=== PATIENT | female | born 1950 | race African-American/Black ===

== ENCOUNTER 2019-04-02 19:31 | Emergency (ER) | payer BC, MEDICAID ==
[~2019-04-02] VITALS: Ht 170.2 cm; Wt 78.0 kg
[~2019-04-02 19:31] MED LIST: AMLO2.5T2; GEMF600T5; LOSA25TA3
[2019-04-03] MEDS: ACETAMINOPHEN 500MG TABLET PO ONE (00:58)
[2019-04-03] MEDS: GABAPENTIN 300MG CAPSULE PO ONE (00:58)
[2019-04-03] MEDS: HYDRALAZINE HCL 10MG TABLET PO ONE (02:02)
[2019-04-03 02:49] VITALS: BP 161/87
== END 2019-04-03 02:52 | disposition home or self-care (01) ==
LOC: ER 19:31
DX: S80.01XA Contusion of right knee, initial encounter (principal); E11.9 Type 2 diabetes mellitus without complications; I10 Essential (primary) hypertension; F17.200 Nicotine dependence, unspecified, uncomplicated; Z79.899 Other long term (current) drug therapy; V49.9XXA Car occupant (driver) (passenger) injured in unspecified traffic accident, initial encounter; Y93.89 Activity, other specified; Y92.89 Other specified places as the place of occurrence of the external cause; Y99.8 Other external cause status
CPT/HCPCS: 73560; 99284

== ENCOUNTER 2019-05-14 13:32 | Emergency (ER) | payer BC ==
[~2019-05-14] VITALS: Ht 170.2 cm; Wt 80.0 kg
[2019-05-14] MEDS ORDERED: IBUPROFEN 600MG TABLET PO ONE (16:45)
[2019-05-14] MEDS ORDERED: ACETAMINOPHEN 500MG TABLET PO ONE (16:45)
[2019-05-14 16:59] VITALS: BP 160/87
== END 2019-05-14 17:09 | disposition home or self-care (01) ==
LOC: ER 13:32
DX: S64.91XA Injury of unspecified nerve at wrist and hand level of right arm, initial encounter (principal); M79.644 Pain in right finger(s); M25.531 Pain in right wrist; M25.551 Pain in right hip; E11.9 Type 2 diabetes mellitus without complications; I10 Essential (primary) hypertension; V89.2XXA Person injured in unspecified motor-vehicle accident, traffic, initial encounter; Y93.89 Activity, other specified; Y92.89 Other specified places as the place of occurrence of the external cause; Y99.8 Other external cause status
CPT/HCPCS: 29125; 99283

== ENCOUNTER 2019-10-12 10:21 | Emergency (ER) | payer BC, MEDICARE ==
[~2019-10-12] VITALS: Ht 170.2 cm; Wt 82.5 kg
[2019-10-12] MEDS ORDERED: albuterol (10:33)
[2019-10-12] MEDS ORDERED: METF-416 PO (10:33)
[2019-10-12] MEDS ORDERED: OMEP20TA2 PO (10:33)
[2019-10-12] MEDS ORDERED: GABA800T97 PO (10:33)
[2019-10-12] MEDS ORDERED: ACETAMINOPHEN WITH CODEINE 300/30MG TABLET PO STA (11:07)
[2019-10-12] MEDS ORDERED: AMLODIPINE 2.5MG TABLET PO ONE (11:15)
[2019-10-12 11:49] LABS: BASOPHILS % 0.8 % (0.0-2.0); EOSINOPHILS % 1.5 % (0.0-5.0); HEMATOCRIT. 42.7 % (36.0-48.0); HEMOGLOBIN. 14.7 g/dL (12.0-16.0); LYMPHOCYTES % 23.2 % (20.0-50.0); MEAN CORPUSCULAR HEMOGLOBIN 30.5 pg (28.0-32.0); MEAN CORPUSCULAR VOLUME 88.5 fL (81.0-99.0); MEAN PLATELET VOLUME 8.6 fl (7.4-10.4); MONOCYTES % 5.9 % (2.0-8.0); NEUTROPHILS % 68.6 % (40.0-76.0); PLATELET 212 x1000/uL (130-400); RED BLOOD CELL COUNT 4.83 mill/uL (4.2-5.4); RED CELL DISTRIBUTION WIDTH 13.6 % (11.6-14.6)
[2019-10-12 11:54] LABS: CHLORIDE 103 mEq/L (98-107)
[2019-10-12] MEDS ORDERED: HYDRALAZINE 20MG/ML VIAL IV ONE ×2 (12:30→14:00)
[2019-10-12] MEDS ORDERED: SODIUM CHLORIDE 0.9% 1,000 ML IV ONE (12:30)
[2019-10-12 14:43] LABS: CLARITY URINE CLEAR (CLEAR); COLOR URINE YELLOW (YELLOW); KETONES URINE NEGATIVE (NEGATIVE); LEUKOCYTE ESTERASE URINE NEGATIVE (NEGATIVE); NITRITE URINE NEGATIVE (NEGATIVE); OCCULT BLOOD URINE NEGATIVE (NEGATIVE); PROTEIN URINE 3+ (NEGATIVE); SPECIFIC GRAVITY URINE 1.016 (1.005-1.030); UROBILINOGEN URINE 0.2 E.U./dL (0.2-1.0)
[2019-10-12] MEDS ORDERED: ONDANSETRON HCL 4MG/2ML INJ IV ONE (17:00)
[2019-10-12 18:20] VITALS: BP 168/78
== END 2019-10-12 18:20 | disposition left against medical advice (07) ==
LOC: ER 10:21 → EDBEDREQ 14:07 → CANBEDREQ 18:02 → ER 18:20
DX: I67.4 Hypertensive encephalopathy (principal); E11.9 Type 2 diabetes mellitus without complications; E78.00 Pure hypercholesterolemia, unspecified; Z98.890 Other specified postprocedural states; Z79.899 Other long term (current) drug therapy
CPT/HCPCS: 36415; 70450; 71045; 80053; 81003; 84484; 85025; 93005; 96361; 96374; 96375; 96376; 99285; J0360; J2405; J7030

== ENCOUNTER 2020-01-09 13:34 | Emergency (ER) | payer MEDICARE ==
[~2020-01-09] VITALS: Ht 167.6 cm; Wt 81.0 kg
[~2020-01-09 13:34] MED LIST changes: +GABA800T97 PO; +METF-416 PO; +OMEP20TA2 PO; +albuterol
[2020-01-09] MEDS ORDERED: HYDROCODONE/ACETAMINOPHEN 5/325MG TABLET PO STA (16:00)
[2020-01-09] MEDS ORDERED: PREDNISONE 20MG TABLET PO ONE (16:00)
[2020-01-09] MEDS ORDERED: VALACYCLOVIR HCL 500MG TABLET PO SCH (16:00)
[2020-01-09 16:32] LABS: BASOPHILS % 0.9 % (0.0-2.0); EOSINOPHILS % 1.8 % (0.0-5.0); HEMATOCRIT. 41.6 % (36.0-48.0); HEMOGLOBIN. 14.6 g/dL (12.0-16.0); LYMPHOCYTES % 25.8 % (20.0-50.0); MEAN CORPUSCULAR HEMOGLOBIN 31.7 pg (28.0-32.0); MEAN CORPUSCULAR VOLUME 89.9 fL (81.0-99.0); MEAN PLATELET VOLUME 8.5 fl (7.4-10.4); MONOCYTES % 7.2 % (2.0-8.0); NEUTROPHILS % 64.3 % (40.0-76.0); PLATELET 227 x1000/uL (130-400); RED BLOOD CELL COUNT 4.62 mill/uL (4.2-5.4); RED CELL DISTRIBUTION WIDTH 14.2 % (11.6-14.6)
[2020-01-09 16:39] LABS: CHLORIDE 103 mEq/L (98-107)
[2020-01-09] MEDS ORDERED: KETOROLAC 60MG/2ML VIAL IM ONE (17:45)
[2020-01-09 18:12] LABS: CLARITY URINE CLEAR (CLEAR); COLOR URINE YELLOW (YELLOW); KETONES URINE TRACE (NEGATIVE); LEUKOCYTE ESTERASE URINE NEGATIVE (NEGATIVE); NITRITE URINE NEGATIVE (NEGATIVE); OCCULT BLOOD URINE NEGATIVE (NEGATIVE); PH URINE 5.5 (4.5-8.0); PROTEIN URINE 4+ (NEGATIVE); SPECIFIC GRAVITY URINE 1.025 (1.005-1.030)
[2020-01-09 18:51] VITALS: BP 189/97
== END 2020-01-09 18:54 | disposition home or self-care (01) ==
LOC: ER 13:34
DX: B02.9 Zoster without complications (principal); R10.31 Right lower quadrant pain; E11.9 Type 2 diabetes mellitus without complications; I10 Essential (primary) hypertension; E78.00 Pure hypercholesterolemia, unspecified; F17.210 Nicotine dependence, cigarettes, uncomplicated; Z79.84 Long term (current) use of oral hypoglycemic drugs
CPT/HCPCS: 36415; 74176; 80053; 81003; 83690; 85025; 96372; 99284; J1885; J7512

== ENCOUNTER 2021-05-23 10:34 | Emergency (ER) | payer MEDICARE ==
[~2021-05-23] VITALS: Ht 170.2 cm; Wt 91.0 kg
[~2021-05-23 10:34] MED LIST changes: -GEMF600T5; +GEMF600T90
[2021-05-23 13:30] VITALS: BP 235/122
[2021-05-23 14:21] LABS: CLARITY URINE CLEAR (CLEAR); COLOR URINE YELLOW (YELLOW); KETONES URINE NEGATIVE (NEGATIVE); LEUKOCYTE ESTERASE URINE NEGATIVE (NEGATIVE); NITRITE URINE NEGATIVE (NEGATIVE); OCCULT BLOOD URINE 1+ (NEGATIVE); PH URINE 6.5 (4.5-8.0); PROTEIN URINE 4+ (NEGATIVE); SPECIFIC GRAVITY URINE 1.015 (1.005-1.030)
[2021-05-23 14:45] LABS: BG BASE EXCESS 0.8 mmol/L (-2.0-2.0); BG CARBOXYHEMOGLOBIN 5.5 % (0.5-1.5); BG DEOXYHEMOGLOBIN 4.9 % (0.0-5.0); BG FRACTION INSPIRED OXYGEN 21; BG HCO3 ACT 24.4 mmol/L (22.0-26.0); BG OXYGEN SATURATION 94.8 % (92.0-98.5); BG OXYHEMOGLOBIN 89.6 % (94.0-97.0); BG PCO2 35.6 mmHg (35.0-45.0); BG PH 7.454 (7.350-7.450); BG PO2 70.5 mmHg (75.0-100.0); BG SAMPLE SITE RIGHT BRACHIAL; BG TOTAL HEMOGLOBIN 12.2 g/dL (12.0-18.0); BG VENT MODE ROOM AIR
[2021-05-23 15:12] LABS: BASOPHILS % 0.9 % (0.0-2.0); EOSINOPHILS % 1.6 % (0.0-5.0); HEMATOCRIT. 35.5 % (36.0-48.0); HEMOGLOBIN. 11.9 g/dL (12.0-16.0); LYMPHOCYTES % 16.2 % (20.0-50.0); MEAN CORPUSCULAR HEMOGLOBIN 29.6 pg (28.0-32.0); MEAN CORPUSCULAR VOLUME 88.6 fL (81.0-99.0); MEAN PLATELET VOLUME 8.2 fl (7.4-10.4); NEUTROPHILS % 74.3 % (40.0-76.0); PLATELET 276 x1000/uL (130-400); RED BLOOD CELL COUNT 4.01 mill/uL (4.2-5.4); RED CELL DISTRIBUTION WIDTH 14.1 % (11.6-14.6)
[2021-05-23 15:18] LABS: CHLORIDE 111 mEq/L (98-107)
[2021-05-23] MEDS ORDERED: KCL 10MEQ/50ML PREMIX 50 ML IV ONE (18:00)
[2021-05-23] MEDS ORDERED: POTASSIUM CHLORIDE 20MEQ TABLET SR PO ONE ×2 (18:00→19:30)
[2021-05-23] MEDS ORDERED: FUROSEMIDE 20MG/2ML VIAL IVP ONE (19:30)
[2021-05-23] MEDS ORDERED: FUROSEMIDE 20MG TABLET PO ONE (19:30)
[2021-05-23] MEDS ORDERED: POTA-9 MT (19:40)
[2021-05-23] MEDS ORDERED: FURO-152 MT (19:40)
[2021-05-23] MEDS ORDERED: POTASSIUM CHLORIDE 20MEQ TABLET SR PO NR (20:00)
[2021-05-23] MEDS ORDERED: FUROSEMIDE 20MG TABLET PO NR (20:00)
== END 2021-05-23 20:00 | disposition home or self-care (01) ==
LOC: ER 11:03
DX: R60.1 Generalized edema (principal); R06.02 Shortness of breath; J44.9 Chronic obstructive pulmonary disease, unspecified; I10 Essential (primary) hypertension; E11.9 Type 2 diabetes mellitus without complications; Z98.890 Other specified postprocedural states
CPT/HCPCS: 36415; 36600; 71045; 80053; 81003; 82375; 82805; 83605; 83880; 84484; 85025; 93005; 99285; J3480

== ENCOUNTER 2021-07-20 19:44 | Inpatient (IN) | payer MEDICARE ==
[~2021-07-20] VITALS: Ht 170.2 cm; Wt 95.7 kg
[~2021-07-20 19:44] MED LIST changes: +FURO-152 MT; +POTA-9 MT
[2021-07-20] MEDS ORDERED: ACETAMINOPHEN 325MG TABLET PO ONE (20:45)
[2021-07-20 22:26] LABS: BASOPHILS % 0.8 % (0.0-2.0); HEMATOCRIT. 36.2 % (36.0-48.0); LYMPHOCYTES % 13.2 % (20.0-50.0); MEAN CORPUSCULAR HEMOGLOBIN 29.2 pg (28.0-32.0); MEAN CORPUSCULAR VOLUME 88.1 fL (81.0-99.0); MEAN PLATELET VOLUME 8.4 fl (7.4-10.4); MONOCYTES % 7.6 % (2.0-8.0); NEUTROPHILS % 76.4 % (40.0-76.0); PLATELET 270 x1000/uL (130-400); RED BLOOD CELL COUNT 4.11 mill/uL (4.2-5.4); RED CELL DISTRIBUTION WIDTH 14.9 % (11.6-14.6)
[2021-07-20 22:27] LABS: CHLORIDE 111 mEq/L (98-107)
[2021-07-21] MEDS ORDERED: ASPIRIN 325MG TABLET PO ONE (03:30)
[2021-07-21] MEDS ORDERED: ENOXAPARIN 80MG/0.8ML SYR SUBCUT ONE (03:30)
[2021-07-21] MEDS ORDERED: FUROSEMIDE 40MG/4ML VIAL IVP ONE (03:30)
[2021-07-21] MEDS ORDERED: CARV6.2548 MT (05:14)
[2021-07-21] MEDS ORDERED: ATOR20TA65 MT (05:15)
[2021-07-21] MEDS ORDERED: NPH,100I SQ (05:19)
[2021-07-21] MEDS ORDERED: HYDR-4134 MT (05:19)
[2021-07-21] MEDS ORDERED: LISI40TA13 MT (05:20)
[2021-07-21] MEDS ORDERED: ALBU90AE INH (05:22)
[2021-07-21] MEDS ORDERED: ACETAMINOPHEN 325MG TABLET PO PRN (10:30)
[2021-07-21] MEDS ORDERED: DOCUSATE SODIUM 100MG CAPSULE PO PRN (10:30)
[2021-07-21] MEDS ORDERED: FUROSEMIDE 40MG/4ML VIAL IV SCH (10:30)
[2021-07-21] MEDS ORDERED: MAGNESIUM/ALUMINUM HYDROXIDE/SIMETHICONE 30ML UDC PO PRN (10:30)
[2021-07-21] MEDS ORDERED: HYDROCODONE/ACETAMINOPHEN 5/325MG TABLET PO PRN (10:30)
[2021-07-21] MEDS ORDERED: DEXTROSE 50% WATER 50ML SYRINGE IV PRN ×2 (10:30)
[2021-07-21] MEDS ORDERED: ATORVASTATIN CALCIUM 20MG TABLET PO SCH (10:30)
[2021-07-21] MEDS ORDERED: HYDRALAZINE HCL 25MG TABLET PO SCH (10:30)
[2021-07-21] MEDS: BLOOD SUGAR DIAGNOSTIC STRIP TEST SCH ×3 (11:30→20:52)
[2021-07-21] MEDS: AMLODIPINE 5MG TABLET PO SCH (11:43)
[2021-07-21] MEDS: SPIRONOLACTONE 25MG TABLET PO SCH (11:43)
[2021-07-21] MEDS: INSULIN LISPRO 100 UNITS/ML SUBCUT SCH ×3 (12:00→21:13)
[2021-07-21] MEDS: POTASSIUM CHLORIDE 10MEQ TABLET SR PO SCH (12:00)
[2021-07-21] MEDS: HYDRALAZINE 20MG/ML VIAL IV PRN (12:33)
[2021-07-21] MEDS: HYDRALAZINE HCL 25MG TABLET PO SCH ×2 (13:00→18:53)
[2021-07-21] MEDS: GABAPENTIN 400MG CAPSULE PO SCH ×2 (13:14→22:32)
[2021-07-21] MEDS: CARVEDILOL 6.25 MG TABLET PO SCH ×2 (13:15→21:26)
[2021-07-21] MEDS: LISINOPRIL 40MG TABLET PO SCH (13:15)
[2021-07-21] MEDS ORDERED: LABETALOL 5MG/ML SYR 20 MG/4 ML SYRINGE IV PRN (13:30)
[2021-07-21] MEDS ORDERED: NITROGLYCERIN 50MG PREMIX 250 ML IV PRN (13:45)
[2021-07-21] MEDS: FUROSEMIDE 40MG/4ML VIAL IV SCH (18:00)
[2021-07-21] MEDS: ENOXAPARIN 30MG/0.3ML SYR SUBCUT SCH (19:17)
[2021-07-21] MEDS ORDERED: NALOXONE HCL 0.4MG/ML VIAL IV PRN (21:45)
[2021-07-21 23:43] VITALS: BP 149/86
[2021-07-22] VITALS: BP 163/78
[2021-07-22] MEDS: IPRATROPIUM/ALBUTEROL 0.5-3(2.5)MG/3ML NEB HHN PRN (00:36)
[2021-07-22 04:00] VITALS: BP 173/82
[2021-07-22] MEDS: ENOXAPARIN 30MG/0.3ML SYR SUBCUT SCH ×2 (05:53→17:31)
[2021-07-22] MEDS: GABAPENTIN 400MG CAPSULE PO SCH ×3 (05:53→21:24)
[2021-07-22] MEDS: FUROSEMIDE 40MG/4ML VIAL IV SCH ×2 (05:54→17:27)
[2021-07-22] MEDS: BLOOD SUGAR DIAGNOSTIC STRIP TEST SCH ×4 (05:55→20:31)
[2021-07-22] MEDS: CLONIDINE 0.1MG TABLET PO PRN ×2 (05:55→16:07)
[2021-07-22] MEDS: INSULIN LISPRO 100 UNITS/ML SUBCUT SCH ×4 (06:51→21:29)
[2021-07-22 08:00] VITALS: BP 159/80
[2021-07-22] MEDS ORDERED: LISINOPRIL 40MG TABLET PO SCH (09:00)
[2021-07-22] MEDS ORDERED: IOHEXOL-350 100 ML BOTTLE ONE (09:26)
[2021-07-22] MEDS: POTASSIUM CHLORIDE 10MEQ TABLET SR PO SCH (09:40)
[2021-07-22] MEDS: CARVEDILOL 6.25 MG TABLET PO SCH ×2 (09:40→21:24)
[2021-07-22] MEDS: LISINOPRIL 40MG TABLET PO SCH (09:41)
[2021-07-22] MEDS: HYDRALAZINE HCL 25MG TABLET PO SCH ×2 (09:41→16:09)
[2021-07-22] MEDS: SPIRONOLACTONE 25MG TABLET PO SCH (09:41)
[2021-07-22] MEDS: AMLODIPINE 5MG TABLET PO SCH (09:41)
[2021-07-22 10:46] LABS: EOSINOPHILS % 2.2 % (0.0-5.0); HEMATOCRIT. 33.2 % (36.0-48.0); LYMPHOCYTES % 13.8 % (20.0-50.0); MEAN CORPUSCULAR HEMOGLOBIN 29.5 pg (28.0-32.0); MEAN CORPUSCULAR VOLUME 89.2 fL (81.0-99.0); MEAN PLATELET VOLUME 8.4 fl (7.4-10.4); MONOCYTES % 8.2 % (2.0-8.0); NEUTROPHILS % 74.8 % (40.0-76.0); PLATELET 215 x1000/uL (130-400); RED BLOOD CELL COUNT 3.72 mill/uL (4.2-5.4); RED CELL DISTRIBUTION WIDTH 14.6 % (11.6-14.6)
[2021-07-22 10:54] LABS: PHOSPHORUS 4.2 mg/dL (2.5-4.9)
[2021-07-22 10:57] LABS: T4 FREE 1.22 ng/dL (0.76-1.46)
[2021-07-22 12:00] VITALS: BP 158/88
[2021-07-22 15:55] VITALS: BP 164/89
[2021-07-22 19:54] LABS: *AMPHETAMINES SCREEN URINE NEGATIVE (NEGATIVE); *BARBITURATES SCREEN URINE NEGATIVE (NEGATIVE); *BENZODIAZEPINES SCREEN URINE NEGATIVE (NEGATIVE); *COCAINE SCREEN URINE NEGATIVE (NEGATIVE)
[2021-07-22 19:55] LABS: CANNABINOID URINE SCREEN PRESUMTIVE POSITIVE (NEGATIVE); METHADONE URINE SCREEN NEGATIVE (NEGATIVE); OPIATES URINE SCREEN NEGATIVE (NEGATIVE); PHENCYCLIDINE URINE SCREEN NEGATIVE (NEGATIVE)
[2021-07-22 20:00] VITALS: BP 180/83
[2021-07-22] MEDS: ATORVASTATIN CALCIUM 20MG TABLET PO SCH (21:24)
[2021-07-22] MEDS: FLUTICASONE PROPIONATE 50MCG/SPRAY BOTTLE BOTHNSTRLS SCH (21:25)
[2021-07-22] MEDS: HYDRALAZINE 20MG/ML VIAL IV PRN (21:25)
[2021-07-23] VITALS (9 sets, daily range): BP systolic 146–196; BP diastolic 65–98
[2021-07-23] MEDS: GABAPENTIN 400MG CAPSULE PO SCH ×2 (05:01→21:58)
[2021-07-23] MEDS: ENOXAPARIN 30MG/0.3ML SYR SUBCUT SCH ×2 (05:01→18:00)
[2021-07-23] MEDS: BLOOD SUGAR DIAGNOSTIC STRIP TEST SCH ×4 (06:10→20:19)
[2021-07-23] MEDS: HYDRALAZINE 20MG/ML VIAL IV PRN ×2 (06:10→22:07)
[2021-07-23] MEDS: FUROSEMIDE 40MG/4ML VIAL IV SCH (06:10)
[2021-07-23] MEDS: INSULIN LISPRO 100 UNITS/ML SUBCUT SCH ×4 (06:16→20:51)
[2021-07-23] MEDS: HYDRALAZINE HCL 25MG TABLET PO SCH ×3 (10:11→18:26)
[2021-07-23] MEDS: CARVEDILOL 6.25 MG TABLET PO SCH ×2 (10:11→20:43)
[2021-07-23] MEDS: SPIRONOLACTONE 25MG TABLET PO SCH (10:12)
[2021-07-23] MEDS: AMLODIPINE 10MG TABLET PO SCH (10:12)
[2021-07-23] MEDS: POTASSIUM CHLORIDE 10MEQ TABLET SR PO SCH (10:12)
[2021-07-23] MEDS: LISINOPRIL 40MG TABLET PO SCH (10:13)
[2021-07-23] MEDS: FLUTICASONE PROPIONATE 50MCG/SPRAY BOTTLE BOTHNSTRLS SCH ×2 (10:13→20:44)
[2021-07-23 11:24] LABS: EOSINOPHILS % 2.1 % (0.0-5.0); HEMATOCRIT. 34.8 % (36.0-48.0); HEMOGLOBIN. 11.5 g/dL (12.0-16.0); LYMPHOCYTES % 13.1 % (20.0-50.0); MEAN CORPUSCULAR HEMOGLOBIN 29.6 pg (28.0-32.0); MEAN CORPUSCULAR VOLUME 89.2 fL (81.0-99.0); MEAN PLATELET VOLUME 8.9 fl (7.4-10.4); NEUTROPHILS % 75.8 % (40.0-76.0); PLATELET 246 x1000/uL (130-400); RED CELL DISTRIBUTION WIDTH 14.8 % (11.6-14.6)
[2021-07-23] MEDS ORDERED: NICARDIPINE 100MCG/ML 10ML VIAL (CATH LAB) IV ONE (13:25)
[2021-07-23] MEDS ORDERED: HEPARIN SODIUM 1,000 UNIT/1ML VIAL IV ONE (13:25)
[2021-07-23] MEDS ORDERED: NITROGLYCERIN 50MCG/ML 10ML VIAL (CATH LAB) IV ONE (13:25)
[2021-07-23] MEDS ORDERED: ATROPINE SULFATE 1MG/10ML SYR IV PRN (16:45)
[2021-07-23] MEDS: ATORVASTATIN CALCIUM 20MG TABLET PO SCH (20:43)
[2021-07-23] MEDS: IPRATROPIUM/ALBUTEROL 0.5-3(2.5)MG/3ML NEB HHN PRN (21:39)
[2021-07-24] VITALS (11 sets, daily range): BP systolic 135–183; BP diastolic 61–94
[2021-07-24] MEDS: BLOOD SUGAR DIAGNOSTIC STRIP TEST SCH ×4 (06:11→20:41)
[2021-07-24] MEDS: GABAPENTIN 400MG CAPSULE PO SCH ×3 (06:32→22:58)
[2021-07-24] MEDS: ENOXAPARIN 30MG/0.3ML SYR SUBCUT SCH (06:32)
[2021-07-24] MEDS: HYDRALAZINE 20MG/ML VIAL IV PRN (06:42)
[2021-07-24 06:59] LABS: BASOPHILS % 0.9 % (0.0-2.0); EOSINOPHILS % 2.6 % (0.0-5.0); HEMATOCRIT. 32.4 % (36.0-48.0); LYMPHOCYTES % 16.2 % (20.0-50.0); MEAN CORPUSCULAR HEMOGLOBIN 30.1 pg (28.0-32.0); MEAN CORPUSCULAR VOLUME 88.5 fL (81.0-99.0); NEUTROPHILS % 71.3 % (40.0-76.0); RED BLOOD CELL COUNT 3.66 mill/uL (4.2-5.4); RED CELL DISTRIBUTION WIDTH 14.7 % (11.6-14.6)
[2021-07-24] MEDS: INSULIN LISPRO 100 UNITS/ML SUBCUT SCH ×4 (07:20→20:53)
[2021-07-24 08:20] LABS: PHOSPHORUS 4.7 mg/dL (2.5-4.9)
[2021-07-24] MEDS: ASPIRIN 81MG TABLET PO SCH (09:01)
[2021-07-24] MEDS: SPIRONOLACTONE 25MG TABLET PO SCH (09:02)
[2021-07-24] MEDS: CARVEDILOL 6.25 MG TABLET PO SCH ×2 (09:02→20:56)
[2021-07-24] MEDS: AMLODIPINE 10MG TABLET PO SCH (09:03)
[2021-07-24] MEDS: CLOPIDOGREL 75MG TABLET PO SCH (09:04)
[2021-07-24] MEDS: FLUTICASONE PROPIONATE 50MCG/SPRAY BOTTLE BOTHNSTRLS SCH ×2 (09:05→20:55)
[2021-07-24] MEDS: ISOSORBIDE MONONITRATE 30MG TABLET SR 24HR PO SCH (09:12)
[2021-07-24] MEDS: POTASSIUM CHLORIDE 10MEQ TABLET SR PO SCH (09:13)
[2021-07-24] MEDS: HYDRALAZINE HCL 100MG TABLET PO SCH ×3 (09:13→22:58)
[2021-07-24 09:18] LABS: MEAN PLATELET VOLUME 8.8 fl (7.4-10.4); PLATELET 208 x1000/uL (130-400)
[2021-07-24] MEDS: SODIUM CHLORIDE 0.9% 1,000 ML IV SCH (14:08)
[2021-07-24 17:28] LABS: CLARITY URINE CLOUDY (CLEAR); COLOR URINE YELLOW (YELLOW); KETONES URINE NEGATIVE (NEGATIVE); LEUKOCYTE ESTERASE URINE NEGATIVE (NEGATIVE); NITRITE URINE NEGATIVE (NEGATIVE); OCCULT BLOOD URINE NEGATIVE (NEGATIVE); PROTEIN URINE 4+ (NEGATIVE); SPECIFIC GRAVITY URINE 1.047 (1.005-1.030)
[2021-07-24 18:11] LABS: CREATINE KINASE 397 IU/L (26-192)
[2021-07-24] MEDS: ATORVASTATIN CALCIUM 40MG TABLET PO SCH (20:55)
[2021-07-25] VITALS (13 sets, daily range): BP systolic 119–170; BP diastolic 54–86
[2021-07-25] MEDS: SODIUM CHLORIDE 0.9% 1,000 ML IV SCH ×2 (00:23→13:27)
[2021-07-25] MEDS: GABAPENTIN 400MG CAPSULE PO SCH ×3 (05:34→22:06)
[2021-07-25] MEDS: HYDRALAZINE HCL 100MG TABLET PO SCH ×3 (05:34→22:06)
[2021-07-25] MEDS: BLOOD SUGAR DIAGNOSTIC STRIP TEST SCH ×4 (06:12→20:28)
[2021-07-25 06:56] LABS: EOSINOPHILS % 1.9 % (0.0-5.0); HEMATOCRIT. 30.6 % (36.0-48.0); HEMOGLOBIN. 10.4 g/dL (12.0-16.0); LYMPHOCYTES % 16.1 % (20.0-50.0); MEAN CORPUSCULAR HEMOGLOBIN 30.1 pg (28.0-32.0); MEAN CORPUSCULAR VOLUME 88.7 fL (81.0-99.0); MEAN PLATELET VOLUME 8.9 fl (7.4-10.4); PLATELET 197 x1000/uL (130-400); RED BLOOD CELL COUNT 3.45 mill/uL (4.2-5.4)
[2021-07-25] MEDS: INSULIN LISPRO 100 UNITS/ML SUBCUT SCH ×4 (07:20→20:32)
[2021-07-25] MEDS: FLUTICASONE PROPIONATE 50MCG/SPRAY BOTTLE BOTHNSTRLS SCH ×2 (09:00→20:53)
[2021-07-25] MEDS: SPIRONOLACTONE 25MG TABLET PO SCH (09:07)
[2021-07-25] MEDS: CLOPIDOGREL 75MG TABLET PO SCH (09:07)
[2021-07-25] MEDS: POTASSIUM CHLORIDE 10MEQ TABLET SR PO SCH (09:07)
[2021-07-25] MEDS: AMLODIPINE 10MG TABLET PO SCH (09:07)
[2021-07-25] MEDS: ASPIRIN 81MG TABLET PO SCH (09:07)
[2021-07-25] MEDS: ISOSORBIDE MONONITRATE 30MG TABLET SR 24HR PO SCH (09:07)
[2021-07-25] MEDS: CARVEDILOL 6.25 MG TABLET PO SCH ×2 (09:08→20:43)
[2021-07-25] MEDS: ENOXAPARIN 40MG/0.4ML SYR SUBCUT SCH (09:11)
[2021-07-25] MEDS: ATORVASTATIN CALCIUM 40MG TABLET PO SCH (20:43)
[2021-07-25] MEDS: IPRATROPIUM/ALBUTEROL 0.5-3(2.5)MG/3ML NEB HHN PRN (21:28)
[2021-07-26] VITALS (12 sets, daily range): BP systolic 121–166; BP diastolic 57–98
[2021-07-26] MEDS: SODIUM CHLORIDE 0.9% 1,000 ML IV SCH (04:46)
[2021-07-26] MEDS: BLOOD SUGAR DIAGNOSTIC STRIP TEST SCH ×4 (06:18→20:22)
[2021-07-26 06:21] LABS: BASOPHILS % 0.7 % (0.0-2.0); EOSINOPHILS % 2.2 % (0.0-5.0); HEMATOCRIT. 30.7 % (36.0-48.0); HEMOGLOBIN. 10.4 g/dL (12.0-16.0); LYMPHOCYTES % 14.2 % (20.0-50.0); MEAN CORPUSCULAR HEMOGLOBIN 30.2 pg (28.0-32.0); MEAN CORPUSCULAR VOLUME 89.1 fL (81.0-99.0); MEAN PLATELET VOLUME 8.9 fl (7.4-10.4); MONOCYTES % 8.3 % (2.0-8.0); NEUTROPHILS % 74.6 % (40.0-76.0); PLATELET 195 x1000/uL (130-400); RED BLOOD CELL COUNT 3.44 mill/uL (4.2-5.4); RED CELL DISTRIBUTION WIDTH 14.9 % (11.6-14.6)
[2021-07-26] MEDS: HYDRALAZINE HCL 100MG TABLET PO SCH ×3 (06:28→21:10)
[2021-07-26] MEDS: GABAPENTIN 400MG CAPSULE PO SCH ×3 (06:28→21:10)
[2021-07-26 06:59] LABS: HEPATITIS B SURFACE ANTIGEN NEGATIVE
[2021-07-26] MEDS: INSULIN LISPRO 100 UNITS/ML SUBCUT SCH ×4 (07:17→21:12)
[2021-07-26] MEDS: CLOPIDOGREL 75MG TABLET PO SCH (08:52)
[2021-07-26] MEDS: SPIRONOLACTONE 25MG TABLET PO SCH (08:52)
[2021-07-26] MEDS: ASPIRIN 81MG TABLET PO SCH (08:52)
[2021-07-26] MEDS: ENOXAPARIN 40MG/0.4ML SYR SUBCUT SCH (08:52)
[2021-07-26] MEDS: POTASSIUM CHLORIDE 10MEQ TABLET SR PO SCH (08:52)
[2021-07-26] MEDS: CARVEDILOL 6.25 MG TABLET PO SCH ×2 (08:52→21:10)
[2021-07-26] MEDS: ISOSORBIDE MONONITRATE 30MG TABLET SR 24HR PO SCH (08:53)
[2021-07-26] MEDS: AMLODIPINE 10MG TABLET PO SCH (08:53)
[2021-07-26] MEDS ORDERED: FUROSEMIDE 40MG/4ML VIAL IVP NR (11:00)
[2021-07-26] MEDS: ATORVASTATIN CALCIUM 40MG TABLET PO SCH (21:10)
[2021-07-27] VITALS (13 sets, daily range): BP systolic 125–159; BP diastolic 65–86
[2021-07-27] MEDS: HYDRALAZINE HCL 100MG TABLET PO SCH ×3 (06:05→21:05)
[2021-07-27] MEDS: BLOOD SUGAR DIAGNOSTIC STRIP TEST SCH ×4 (06:05→21:03)
[2021-07-27] MEDS: GABAPENTIN 400MG CAPSULE PO SCH ×3 (06:05→21:04)
[2021-07-27] MEDS: INSULIN LISPRO 100 UNITS/ML SUBCUT SCH ×4 (07:08→21:00)
[2021-07-27 07:48] LABS: BASOPHILS % 0.9 % (0.0-2.0); EOSINOPHILS % 2.5 % (0.0-5.0); HEMATOCRIT. 29.9 % (36.0-48.0); LYMPHOCYTES % 15.1 % (20.0-50.0); MEAN CORPUSCULAR HEMOGLOBIN 29.7 pg (28.0-32.0); MEAN CORPUSCULAR VOLUME 88.9 fL (81.0-99.0); MEAN PLATELET VOLUME 9.2 fl (7.4-10.4); MONOCYTES % 9.1 % (2.0-8.0); NEUTROPHILS % 72.4 % (40.0-76.0); PLATELET 193 x1000/uL (130-400); RED BLOOD CELL COUNT 3.36 mill/uL (4.2-5.4); RED CELL DISTRIBUTION WIDTH 14.7 % (11.6-14.6)
[2021-07-27] MEDS: CARVEDILOL 6.25 MG TABLET PO SCH ×2 (08:47→21:04)
[2021-07-27] MEDS: ASPIRIN 81MG TABLET PO SCH (08:47)
[2021-07-27] MEDS: CLOPIDOGREL 75MG TABLET PO SCH (08:47)
[2021-07-27] MEDS: ENOXAPARIN 40MG/0.4ML SYR SUBCUT SCH (08:47)
[2021-07-27] MEDS: ISOSORBIDE MONONITRATE 30MG TABLET SR 24HR PO SCH (08:47)
[2021-07-27] MEDS: AMLODIPINE 10MG TABLET PO SCH (08:47)
[2021-07-27 13:06] LABS: ANTI-NUCLEAR ANTIBODIES DIRECT Negative (Negative)
[2021-07-27] MEDS: ATORVASTATIN CALCIUM 40MG TABLET PO SCH (21:04)
[2021-07-28] VITALS (12 sets, daily range): BP systolic 113–168; BP diastolic 36–86
[2021-07-28] MEDS: CLONIDINE 0.1MG TABLET PO PRN (03:25)
[2021-07-28] MEDS: BLOOD SUGAR DIAGNOSTIC STRIP TEST SCH ×3 (06:42→16:58)
[2021-07-28] MEDS: HYDRALAZINE HCL 100MG TABLET PO SCH ×2 (06:42→14:15)
[2021-07-28] MEDS: GABAPENTIN 400MG CAPSULE PO SCH ×2 (06:42→14:15)
[2021-07-28 07:14] LABS: EOSINOPHILS % 2.3 % (0.0-5.0); HEMATOCRIT. 30.5 % (36.0-48.0); HEMOGLOBIN. 10.4 g/dL (12.0-16.0); LYMPHOCYTES % 13.6 % (20.0-50.0); MEAN CORPUSCULAR HEMOGLOBIN 30.3 pg (28.0-32.0); MEAN CORPUSCULAR VOLUME 88.8 fL (81.0-99.0); MEAN PLATELET VOLUME 9.1 fl (7.4-10.4); MONOCYTES % 8.6 % (2.0-8.0); NEUTROPHILS % 74.5 % (40.0-76.0); PLATELET 198 x1000/uL (130-400); RED BLOOD CELL COUNT 3.43 mill/uL (4.2-5.4); RED CELL DISTRIBUTION WIDTH 14.7 % (11.6-14.6)
[2021-07-28 07:34] LABS: PHOSPHORUS 5.8 mg/dL (2.5-4.9)
[2021-07-28] MEDS: AMLODIPINE 10MG TABLET PO SCH (07:59)
[2021-07-28] MEDS: INSULIN LISPRO 100 UNITS/ML SUBCUT SCH ×3 (07:59→16:58)
[2021-07-28] MEDS: ENOXAPARIN 40MG/0.4ML SYR SUBCUT SCH (07:59)
[2021-07-28] MEDS: CLOPIDOGREL 75MG TABLET PO SCH (07:59)
[2021-07-28] MEDS: ASPIRIN 81MG TABLET PO SCH (07:59)
[2021-07-28] MEDS: CARVEDILOL 6.25 MG TABLET PO SCH (08:00)
[2021-07-28] MEDS: ISOSORBIDE MONONITRATE 30MG TABLET SR 24HR PO SCH (08:00)
[2021-07-28] MEDS ORDERED: FUROSEMIDE 40MG TABLET PO SCH (09:00)
[2021-07-28] MEDS ORDERED: FURO40TA5 MT (12:43)
[2021-07-28] MEDS ORDERED: LIP40 PO (12:43)
[2021-07-28] MEDS ORDERED: CARV6.2548 MT (12:43)
[2021-07-28] MEDS ORDERED: GLIP5TAB12 MT (12:43)
[2021-07-28] MEDS ORDERED: GABA-533 PO (12:43)
[2021-07-28] MEDS ORDERED: ASPI-1406 MT (12:43)
[2021-07-28] MEDS ORDERED: ISOS30TA91 PO (12:43)
[2021-07-28] MEDS ORDERED: HYDR100T26 PO (12:43)
[2021-07-28] MEDS ORDERED: AMLO10TA80 PO (12:43)
[2021-07-28] MEDS ORDERED: CLOP75TA15 PO (12:43)
[2021-07-28] MEDS: IPRATROPIUM/ALBUTEROL 0.5-3(2.5)MG/3ML NEB HHN PRN (16:53)
== END 2021-07-28 18:54 | disposition home health service (06) | DRG 246 ==
LOC: ER 19:44 → MICUSO 07-21 04:30 → 5WST 07-21 22:25 → 3WST 07-23 17:47
PROVIDERS: ADMIT Internal Medicine; ATTEND Internal Medicine
PROC: 027034Z Dilation of Coronary Artery, One Artery with Drug-eluting Intraluminal Device, Percutaneous Approach (ICD-10-PCS; principal; 2021-07-23)
PROC: 4A023N7 Measurement of Cardiac Sampling and Pressure, Left Heart, Percutaneous Approach (ICD-10-PCS; 2021-07-23)
PROC: B211YZZ Fluoroscopy of Multiple Coronary Arteries using Other Contrast (ICD-10-PCS; 2021-07-23)
DX: I21.4 Non-ST elevation (NSTEMI) myocardial infarction (principal); J96.01 Acute respiratory failure with hypoxia; I50.33 Acute on chronic diastolic (congestive) heart failure; N17.9 Acute kidney failure, unspecified; I13.0 Hypertensive heart and chronic kidney disease with heart failure and stage 1 through stage 4 chronic kidney disease, or unspecified chronic kidney disease; N18.4 Chronic kidney disease, stage 4 (severe); E44.0 Moderate protein-calorie malnutrition; E87.6 Hypokalemia; F17.210 Nicotine dependence, cigarettes, uncomplicated; E78.5 Hyperlipidemia, unspecified; I16.0 Hypertensive urgency; J44.9 Chronic obstructive pulmonary disease, unspecified; Z20.822 Contact with and (suspected) exposure to COVID-19; E11.22 Type 2 diabetes mellitus with diabetic chronic kidney disease; E88.09 Other disorders of plasma-protein metabolism, not elsewhere classified; G47.33 Obstructive sleep apnea (adult) (pediatric); Z79.84 Long term (current) use of oral hypoglycemic drugs; Z79.899 Other long term (current) drug therapy; Z71.6 Tobacco abuse counseling; Z68.33 Body mass index [BMI] 33.0-33.9, adult
CPT/HCPCS: 36415; 71045; 71275; 73630; 76770; 80048; 80053; 80061; 80305; 81003; 82550; 82570; 82962; 83036; 83735; 83880; 84100; 84156; 84300; 84439; 84443; 84484; 85025; 85347; 85379; 86038; 86160; 86803; 87340; 87426; 92928; 93005; 93306; 93458; 93970; 94640; 97162; 99291; C1769; C1874; C1887; C1893; J0360; J1644; J1650; J1815; J1940; J2250; J3010; J3490; J7030; Q9967

== ENCOUNTER 2021-09-04 18:52 | Inpatient (IN) | payer MEDICARE ==
[~2021-09-04] VITALS: Ht 170.2 cm; Wt 83.0 kg
[~2021-09-04 18:52] MED LIST changes: +ALBU90AE INH; +AMLO10TA80 PO; -AMLO2.5T2; +ASPI-1406 MT; +CARV6.2548 MT; +CLOP75TA15 PO; -FURO-152 MT; +FURO40TA5 MT; +GABA-533 PO; -GABA800T97 PO; -GEMF600T90; +GLIP5TAB12 MT; +HYDR100T26 PO; +ISOS30TA91 PO; +LIP40 PO; -LOSA25TA3; -METF-416 PO; +NPH,100I SQ; -POTA-9 MT; -albuterol
[2021-09-04] MEDS ORDERED: ASPIRIN 325MG EC TABLET PO ONE (19:45)
[2021-09-04 19:48] LABS: BASOPHILS % 0.8 % (0.0-2.0); EOSINOPHILS % 2.3 % (0.0-5.0); HEMATOCRIT. 29.5 % (36.0-48.0); LYMPHOCYTES % 11.2 % (20.0-50.0); MEAN CORPUSCULAR HEMOGLOBIN 29.3 pg (28.0-32.0); MEAN CORPUSCULAR VOLUME 86.2 fL (81.0-99.0); MEAN PLATELET VOLUME 7.8 fl (7.4-10.4); MONOCYTES % 7.4 % (2.0-8.0); NEUTROPHILS % 78.3 % (40.0-76.0); PLATELET 267 x1000/uL (130-400); RED BLOOD CELL COUNT 3.43 mill/uL (4.2-5.4); RED CELL DISTRIBUTION WIDTH 15.1 % (11.6-14.6)
[2021-09-04 19:50] LABS: CHLORIDE 111 mEq/L (98-107)
[2021-09-04 19:53] LABS: PARTIAL THROMBOPLASTIN TIME 32.3 sec (23.4-31.0); PROTHROMBIN TIME 10.8 sec (9.6-11.0)
[2021-09-04] MEDS ORDERED: POTASSIUM CHLORIDE 20MEQ TABLET SR PO ONE (20:30)
[2021-09-04] MEDS ORDERED: MAGNESIUM 1 G PREMIX 100 ML IV ONE (20:30)
[2021-09-05] VITALS (7 sets, daily range): BP systolic 141–200; BP diastolic 60–92
[2021-09-05] MEDS ORDERED: LABETALOL HCL VIAL 20 MG/4 ML VIAL IV ONE (00:45)
[2021-09-05] MEDS ORDERED: MAGNESIUM/ALUMINUM HYDROXIDE/SIMETHICONE 30ML UDC PO PRN (01:00)
[2021-09-05] MEDS ORDERED: ONDANSETRON HCL 4MG/2ML INJ IV PRN (01:00)
[2021-09-05] MEDS ORDERED: ACETAMINOPHEN 325MG TABLET PO PRN (01:00)
[2021-09-05] MEDS ORDERED: GUAIFENESIN 200MG/10ML SUGAR FREE UDC PO PRN (01:00)
[2021-09-05] MEDS ORDERED: HYDROCODONE/ACETAMINOPHEN 5/325MG TABLET PO PRN (01:00)
[2021-09-05] MEDS ORDERED: ATOR40TA70 PO (01:09)
[2021-09-05] MEDS ORDERED: GABA800T97 PO (01:09)
[2021-09-05] MEDS ORDERED: LISI20TA31 PO (01:09)
[2021-09-05] MEDS ORDERED: CARV12.545 PO (01:09)
[2021-09-05] MEDS ORDERED: CLOP75TA33 PO (01:09)
[2021-09-05] MEDS ORDERED: LABETALOL 5MG/ML SYR 20 MG/4 ML SYRINGE IV SCH (01:15)
[2021-09-05] MEDS ORDERED: NALOXONE HCL 0.4 MG/ML 1ML VIAL IV PRN (01:30)
[2021-09-05] MEDS: CLONIDINE 0.1MG TABLET PO PRN ×2 (02:55→20:30)
[2021-09-05] MEDS: CARVEDILOL 12.5MG TABLET PO SCH ×3 (02:55→20:30)
[2021-09-05] MEDS: ACETAMINOPHEN 325MG TABLET PO PRN (02:56)
[2021-09-05] MEDS: GABAPENTIN 400MG CAPSULE PO SCH ×3 (05:38→22:55)
[2021-09-05] MEDS: HYDRALAZINE HCL 100MG TABLET PO SCH ×3 (05:39→22:56)
[2021-09-05] MEDS ORDERED: HYDRALAZINE HCL 100MG TABLET PO SCH (06:00)
[2021-09-05] MEDS: AMLODIPINE 10MG TABLET PO SCH (08:20)
[2021-09-05] MEDS: CLOPIDOGREL 75MG TABLET PO SCH (08:20)
[2021-09-05] MEDS: ISOSORBIDE MONONITRATE 30MG TABLET SR 24HR PO SCH (08:21)
[2021-09-05] MEDS: ENOXAPARIN 40MG/0.4ML SYR SUBCUT SCH (08:21)
[2021-09-05] MEDS: IPRATROPIUM/ALBUTEROL 0.5-3(2.5)MG/3ML NEB NEB PRN ×2 (08:55→18:20)
[2021-09-05 13:17] LABS: BASOPHILS % 0.9 % (0.0-2.0); EOSINOPHILS % 2.6 % (0.0-5.0); HEMATOCRIT. 27.4 % (36.0-48.0); HEMOGLOBIN. 9.3 g/dL (12.0-16.0); MEAN CORPUSCULAR HEMOGLOBIN 29.3 pg (28.0-32.0); MEAN CORPUSCULAR VOLUME 86.4 fL (81.0-99.0); MEAN PLATELET VOLUME 8.1 fl (7.4-10.4); MONOCYTES % 8.8 % (2.0-8.0); NEUTROPHILS % 76.7 % (40.0-76.0); PLATELET 233 x1000/uL (130-400); RED BLOOD CELL COUNT 3.18 mill/uL (4.2-5.4); RED CELL DISTRIBUTION WIDTH 15.1 % (11.6-14.6)
[2021-09-05 13:50] LABS: CHLORIDE 110 mEq/L (98-107)
[2021-09-05 13:58] LABS: PHOSPHORUS 3.7 mg/dL (2.5-4.9)
[2021-09-05] MEDS: ATORVASTATIN CALCIUM 40MG TABLET PO SCH (20:30)
[2021-09-05] MEDS: FUROSEMIDE 40MG TABLET PO SCH (20:31)
[2021-09-06] VITALS: BP 136/57
[2021-09-06 04:00] VITALS: BP 149/64
[2021-09-06] MEDS: GABAPENTIN 400MG CAPSULE PO SCH ×3 (06:15→22:38)
[2021-09-06] MEDS: HYDRALAZINE HCL 100MG TABLET PO SCH ×3 (06:19→22:39)
[2021-09-06] MEDS: CLONIDINE 0.1MG TABLET PO PRN (06:19)
[2021-09-06 08:00] VITALS: BP 162/75
[2021-09-06] MEDS: FUROSEMIDE 40MG TABLET PO SCH (08:18)
[2021-09-06] MEDS: ISOSORBIDE MONONITRATE 30MG TABLET SR 24HR PO SCH (08:18)
[2021-09-06] MEDS: AMLODIPINE 10MG TABLET PO SCH (08:18)
[2021-09-06] MEDS: ENOXAPARIN 40MG/0.4ML SYR SUBCUT SCH (08:18)
[2021-09-06] MEDS: CARVEDILOL 12.5MG TABLET PO SCH ×2 (08:19→22:39)
[2021-09-06] MEDS: CLOPIDOGREL 75MG TABLET PO SCH (08:19)
[2021-09-06 12:00] VITALS: BP 152/72
[2021-09-06 13:04] LABS: BASOPHILS % 0.8 % (0.0-2.0); EOSINOPHILS % 2.1 % (0.0-5.0); HEMATOCRIT. 28.1 % (36.0-48.0); HEMOGLOBIN. 9.3 g/dL (12.0-16.0); LYMPHOCYTES % 9.6 % (20.0-50.0); MEAN CORPUSCULAR HEMOGLOBIN 28.9 pg (28.0-32.0); MEAN CORPUSCULAR VOLUME 87.2 fL (81.0-99.0); MEAN PLATELET VOLUME 8.3 fl (7.4-10.4); MONOCYTES % 8.5 % (2.0-8.0); PLATELET 232 x1000/uL (130-400); RED BLOOD CELL COUNT 3.23 mill/uL (4.2-5.4); RED CELL DISTRIBUTION WIDTH 15.2 % (11.6-14.6)
[2021-09-06] MEDS: ASPIRIN 81MG EC TABLET PO SCH (14:12)
[2021-09-06] MEDS ORDERED: POTASSIUM CHLORIDE 20MEQ/PACKET PO NR (16:00)
[2021-09-06 16:30] VITALS: BP 138/66
[2021-09-06] MEDS ORDERED: LOPERAMIDE HCL 2MG CAPSULE PO PRN (16:30)
[2021-09-06] MEDS ORDERED: LOPERAMIDE HCL 2MG CAPSULE PO NR (16:30)
[2021-09-06 20:00] VITALS: BP 145/69
[2021-09-06] MEDS: ATORVASTATIN CALCIUM 40MG TABLET PO SCH (22:39)
[2021-09-07] VITALS: BP 129/57
[2021-09-07 04:00] VITALS: BP 157/53
[2021-09-07] MEDS: HYDRALAZINE HCL 100MG TABLET PO SCH ×3 (06:22→22:01)
[2021-09-07] MEDS: GABAPENTIN 400MG CAPSULE PO SCH ×3 (06:22→22:04)
[2021-09-07 07:20] LABS: BASOPHILS % 0.7 % (0.0-2.0); EOSINOPHILS % 3.2 % (0.0-5.0); HEMATOCRIT. 28.2 % (36.0-48.0); HEMOGLOBIN. 9.3 g/dL (12.0-16.0); LYMPHOCYTES % 14.2 % (20.0-50.0); MEAN PLATELET VOLUME 8.2 fl (7.4-10.4); MONOCYTES % 9.4 % (2.0-8.0); NEUTROPHILS % 72.5 % (40.0-76.0); PLATELET 216 x1000/uL (130-400); RED BLOOD CELL COUNT 3.21 mill/uL (4.2-5.4); RED CELL DISTRIBUTION WIDTH 15.1 % (11.6-14.6)
[2021-09-07 07:44] LABS: PHOSPHORUS 4.3 mg/dL (2.5-4.9)
[2021-09-07 08:00] VITALS: BP 157/63
[2021-09-07] MEDS: CLOPIDOGREL 75MG TABLET PO SCH (09:16)
[2021-09-07] MEDS: ENOXAPARIN 40MG/0.4ML SYR SUBCUT SCH (09:16)
[2021-09-07] MEDS: ASPIRIN 81MG EC TABLET PO SCH (09:17)
[2021-09-07] MEDS: AMLODIPINE 10MG TABLET PO SCH (09:17)
[2021-09-07] MEDS: CARVEDILOL 12.5MG TABLET PO SCH ×2 (09:17→22:01)
[2021-09-07] MEDS: ISOSORBIDE MONONITRATE 30MG TABLET SR 24HR PO SCH (11:41)
[2021-09-07 12:00] VITALS: BP 143/57
[2021-09-07 16:00] VITALS: BP 159/69
[2021-09-07 21:02] LABS: BG BASE EXCESS -3.8 mmol/L (-2.0-2.0); BG CARBOXYHEMOGLOBIN 0.3 % (0.5-1.5); BG DEOXYHEMOGLOBIN 6.1 % (0.0-5.0); BG FRACTION INSPIRED OXYGEN 28; BG METHEMOGLOBIN 0.3 % (0.0-1.5); BG OXYGEN SATURATION 93.9 % (92.0-98.5); BG OXYHEMOGLOBIN 93.3 % (94.0-97.0); BG PCO2 31.6 mmHg (35.0-45.0); BG PH 7.419 (7.350-7.450); BG PO2 70.9 mmHg (75.0-100.0); BG SAMPLE SITE RIGHT RADIAL; BG TOTAL HEMOGLOBIN 9.7 g/dL (12.0-18.0); BG VENT MODE NASAL CANNULA
[2021-09-07] MEDS: ENOXAPARIN 30MG/0.3ML SYR SUBCUT SCH (22:00)
[2021-09-07] MEDS: ATORVASTATIN CALCIUM 40MG TABLET PO SCH (22:01)
[2021-09-08] VITALS: BP 164/58
[2021-09-08] MEDS: CLONIDINE 0.1MG TABLET PO PRN ×2 (01:34→21:14)
[2021-09-08] MEDS: IPRATROPIUM/ALBUTEROL 0.5-3(2.5)MG/3ML NEB NEB PRN (04:44)
[2021-09-08 05:00] VITALS: BP 165/62
[2021-09-08] MEDS: HYDRALAZINE HCL 100MG TABLET PO SCH ×3 (05:59→21:15)
[2021-09-08] MEDS: GABAPENTIN 400MG CAPSULE PO SCH ×3 (05:59→21:15)
[2021-09-08 06:24] LABS: BASOPHILS % 0.8 % (0.0-2.0); EOSINOPHILS % 3.2 % (0.0-5.0); HEMATOCRIT. 26.2 % (36.0-48.0); HEMOGLOBIN. 8.7 g/dL (12.0-16.0); LYMPHOCYTES % 14.8 % (20.0-50.0); MEAN CORPUSCULAR VOLUME 87.6 fL (81.0-99.0); MEAN PLATELET VOLUME 8.4 fl (7.4-10.4); MONOCYTES % 8.7 % (2.0-8.0); NEUTROPHILS % 72.5 % (40.0-76.0); PLATELET 201 x1000/uL (130-400); RED BLOOD CELL COUNT 2.99 mill/uL (4.2-5.4); RED CELL DISTRIBUTION WIDTH 15.3 % (11.6-14.6)
[2021-09-08 06:43] LABS: PHOSPHORUS 4.1 mg/dL (2.5-4.9)
[2021-09-08 07:12] LABS: *CREATININE RANDOM URINE 114.4 mg/dL (Not Estab.); MICROALBUMIN RANDOM URINE 1134.4 ug/mL (Not Estab.)
[2021-09-08] MEDS: CLOPIDOGREL 75MG TABLET PO SCH (08:44)
[2021-09-08] MEDS: ENOXAPARIN 30MG/0.3ML SYR SUBCUT SCH ×2 (08:45→21:14)
[2021-09-08] MEDS: AMLODIPINE 10MG TABLET PO SCH (08:45)
[2021-09-08] MEDS: CARVEDILOL 12.5MG TABLET PO SCH ×2 (08:45→21:15)
[2021-09-08] MEDS: ASPIRIN 81MG EC TABLET PO SCH (08:45)
[2021-09-08] MEDS: ISOSORBIDE MONONITRATE 30MG TABLET SR 24HR PO SCH (08:45)
[2021-09-08 12:00] VITALS: BP 159/69
[2021-09-08 15:18] LABS: BG BASE EXCESS -3.7 mmol/L (-2.0-2.0); BG CARBOXYHEMOGLOBIN 0.2 % (0.5-1.5); BG DEOXYHEMOGLOBIN 8.5 % (0.0-5.0); BG FRACTION INSPIRED OXYGEN 21; BG HCO3 ACT 20.4 mmol/L (22.0-26.0); BG METHEMOGLOBIN 0.1 % (0.0-1.5); BG OXYGEN SATURATION 91.5 % (92.0-98.5); BG OXYHEMOGLOBIN 91.2 % (94.0-97.0); BG PCO2 33.1 mmHg (35.0-45.0); BG PH 7.407 (7.350-7.450); BG PO2 62.1 mmHg (75.0-100.0); BG SAMPLE SITE RIGHT BRACHIAL; BG TOTAL HEMOGLOBIN 9.8 g/dL (12.0-18.0); BG VENT MODE ROOM AIR
[2021-09-08] MEDS ORDERED: FLUT1AER INH (15:43)
[2021-09-08 16:00] VITALS: BP 157/61
[2021-09-08] MEDS: FUROSEMIDE 40MG TABLET PO SCH (17:33)
[2021-09-08 20:30] VITALS: BP 165/71
[2021-09-08] MEDS: ATORVASTATIN CALCIUM 40MG TABLET PO SCH (21:15)
[2021-09-09] VITALS: BP 153/72
[2021-09-09 04:00] VITALS: BP 186/78
[2021-09-09] MEDS: CLONIDINE 0.1MG TABLET PO PRN ×2 (04:11→16:15)
[2021-09-09] MEDS: GABAPENTIN 400MG CAPSULE PO SCH ×4 (05:53→22:00)
[2021-09-09] MEDS: HYDRALAZINE HCL 100MG TABLET PO SCH ×3 (05:53→22:00)
[2021-09-09 07:56] LABS: BASOPHILS % 0.7 % (0.0-2.0); EOSINOPHILS % 2.4 % (0.0-5.0); HEMATOCRIT. 27.7 % (36.0-48.0); HEMOGLOBIN. 9.2 g/dL (12.0-16.0); LYMPHOCYTES % 10.7 % (20.0-50.0); MEAN CORPUSCULAR HEMOGLOBIN 29.1 pg (28.0-32.0); MEAN CORPUSCULAR VOLUME 87.9 fL (81.0-99.0); MEAN PLATELET VOLUME 8.3 fl (7.4-10.4); MONOCYTES % 8.5 % (2.0-8.0); NEUTROPHILS % 77.7 % (40.0-76.0); PLATELET 199 x1000/uL (130-400); RED BLOOD CELL COUNT 3.15 mill/uL (4.2-5.4)
[2021-09-09 08:00] VITALS: BP_SYST 136; BP_SYST 145; BP_DIAS 104; BP_DIAS 73
[2021-09-09 08:24] LABS: PHOSPHORUS 3.8 mg/dL (2.5-4.9)
[2021-09-09] MEDS: FUROSEMIDE 40MG TABLET PO SCH (09:20)
[2021-09-09] MEDS: CARVEDILOL 12.5MG TABLET PO SCH ×2 (09:20→22:07)
[2021-09-09] MEDS: ASPIRIN 81MG EC TABLET PO SCH (09:20)
[2021-09-09] MEDS: AMLODIPINE 10MG TABLET PO SCH (09:21)
[2021-09-09] MEDS: CLOPIDOGREL 75MG TABLET PO SCH (09:21)
[2021-09-09] MEDS: ISOSORBIDE MONONITRATE 60MG TABLET SR 24HR PO SCH (09:21)
[2021-09-09] MEDS: ACETAMINOPHEN 325MG TABLET PO PRN (09:22)
[2021-09-09] MEDS: ENOXAPARIN 30MG/0.3ML SYR SUBCUT SCH ×3 (09:22→22:06)
[2021-09-09 12:00] VITALS: BP 158/63
[2021-09-09 16:00] VITALS: BP 172/70
[2021-09-09 20:00] VITALS: BP 125/68
[2021-09-09] MEDS: ATORVASTATIN CALCIUM 40MG TABLET PO SCH (22:07)
[2021-09-10] VITALS (7 sets, daily range): BP systolic 112–178; BP diastolic 65–82
[2021-09-10] MEDS: GABAPENTIN 400MG CAPSULE PO SCH ×2 (05:42→05:51)
[2021-09-10] MEDS: HYDRALAZINE HCL 100MG TABLET PO SCH (05:42)
[2021-09-10] MEDS: CLONIDINE 0.1MG TABLET PO PRN (05:42)
[2021-09-10 06:53] LABS: BASOPHILS % 0.8 % (0.0-2.0); EOSINOPHILS % 2.7 % (0.0-5.0); HEMATOCRIT. 26.7 % (36.0-48.0); LYMPHOCYTES % 11.7 % (20.0-50.0); MEAN CORPUSCULAR HEMOGLOBIN 29.1 pg (28.0-32.0); MEAN CORPUSCULAR VOLUME 86.5 fL (81.0-99.0); MEAN PLATELET VOLUME 8.6 fl (7.4-10.4); MONOCYTES % 8.2 % (2.0-8.0); NEUTROPHILS % 76.6 % (40.0-76.0); PLATELET 209 x1000/uL (130-400); RED BLOOD CELL COUNT 3.09 mill/uL (4.2-5.4); RED CELL DISTRIBUTION WIDTH 14.8 % (11.6-14.6)
[2021-09-10 07:08] LABS: PHOSPHORUS 4.2 mg/dL (2.5-4.9)
[2021-09-10] MEDS: ENOXAPARIN 30MG/0.3ML SYR SUBCUT SCH (09:00)
[2021-09-10] MEDS ORDERED: ISOS60TA76 PO (09:33)
[2021-09-10] MEDS ORDERED: IMOD PO (09:33)
[2021-09-10] MEDS: CARVEDILOL 12.5MG TABLET PO SCH (09:36)
[2021-09-10] MEDS: CLOPIDOGREL 75MG TABLET PO SCH (09:36)
[2021-09-10] MEDS: FUROSEMIDE 40MG TABLET PO SCH (09:36)
[2021-09-10] MEDS: ISOSORBIDE MONONITRATE 60MG TABLET SR 24HR PO SCH (09:36)
[2021-09-10] MEDS: AMLODIPINE 10MG TABLET PO SCH (09:36)
[2021-09-10] MEDS: ASPIRIN 81MG EC TABLET PO SCH (09:36)
[2021-09-11] MEDS ORDERED: ENOXAPARIN 40MG/0.4ML SYR SUBCUT SCH (09:00)
[2021-09-14 19:06] LABS: OVA & PARASITE EXAM Final report (.)
== END 2021-09-10 15:10 | disposition home or self-care (01) | DRG 291 ==
LOC: ER 18:52 → SUPCPDRO 09-05 00:58 → ENRESERV 09-05 01:44 → 8WST 09-05 02:45
PROVIDERS: ADMIT Internal Medicine; ATTEND Internal Medicine
DX: I13.0 Hypertensive heart and chronic kidney disease with heart failure and stage 1 through stage 4 chronic kidney disease, or unspecified chronic kidney disease (principal); I50.33 Acute on chronic diastolic (congestive) heart failure; J96.00 Acute respiratory failure, unspecified whether with hypoxia or hypercapnia; J44.1 Chronic obstructive pulmonary disease with (acute) exacerbation; N17.9 Acute kidney failure, unspecified; I25.10 Atherosclerotic heart disease of native coronary artery without angina pectoris; E78.5 Hyperlipidemia, unspecified; D64.9 Anemia, unspecified; E11.22 Type 2 diabetes mellitus with diabetic chronic kidney disease; I16.0 Hypertensive urgency; Z20.822 Contact with and (suspected) exposure to COVID-19; N18.30 Chronic kidney disease, stage 3 unspecified; E78.00 Pure hypercholesterolemia, unspecified; E11.42 Type 2 diabetes mellitus with diabetic polyneuropathy; R19.7 Diarrhea, unspecified; F17.210 Nicotine dependence, cigarettes, uncomplicated; Z79.82 Long term (current) use of aspirin; Z79.4 Long term (current) use of insulin; Z79.899 Other long term (current) drug therapy; Z79.02 Long term (current) use of antithrombotics/antiplatelets; Z79.51 Long term (current) use of inhaled steroids; I25.2 Old myocardial infarction; Z95.5 Presence of coronary angioplasty implant and graft; Z82.49 Family history of ischemic heart disease and other diseases of the circulatory system
CPT/HCPCS: 36415; 36600; 71045; 76770; 80048; 80053; 82043; 82375; 82570; 82805; 83036; 83735; 83880; 83930; 83935; 84100; 84156; 84300; 84484; 85025; 87045; 87177; 87209; 87426; 87449; 93005; 93306; 94618; 94640; 97161; 97166; 99285; J1650; J2405; J3475; J3490

== ENCOUNTER 2022-06-27 08:42 | Emergency (ER) | payer MEDICARE ==
[~2022-06-27] VITALS: Ht 170.2 cm; Wt 76.5 kg
[~2022-06-27 08:42] MED LIST changes: +ATOR40TA70 PO; +CARV12.545 PO; -CARV6.2548 MT; +FLUT1AER INH; +IMOD PO; -ISOS30TA91 PO; +ISOS60TA76 PO; -LIP40 PO; +LISI20TA31 PO; -OMEP20TA2 PO; +OMEP20TA23 PO
[2022-06-27] MEDS ORDERED: OXYCODONE HCL 5MG TABLET PO ONE (10:00)
[2022-06-27 10:14] VITALS: BP 195/112
[2022-06-27] MEDS ORDERED: OXYC5CAP19 MT (11:11)
[2022-06-27] MEDS ORDERED: TIZA2CAP7 MT (11:11)
[2022-06-27] MEDS ORDERED: OXYC-662 MT (11:49)
== END 2022-06-27 12:25 | disposition home or self-care (01) ==
LOC: ER 08:42
DX: M54.42 Lumbago with sciatica, left side (principal); I10 Essential (primary) hypertension; J44.9 Chronic obstructive pulmonary disease, unspecified; E78.00 Pure hypercholesterolemia, unspecified; I25.2 Old myocardial infarction; Z79.899 Other long term (current) drug therapy
CPT/HCPCS: 93005; 99283

== ENCOUNTER 2022-06-28 14:54 | Emergency (ER) | payer MEDICARE ==
[~2022-06-28] VITALS: Ht 170.2 cm; Wt 77.0 kg
[~2022-06-28 14:54] MED LIST changes: +OXYC-662 MT; +TIZA2CAP7 MT
[2022-06-28 21:29] VITALS: BP 192/116
[2022-06-28] MEDS ORDERED: ONDANSETRON 4MG ODT PO ONE (21:45)
[2022-06-28] MEDS ORDERED: METHOCARBAMOL 500MG TABLET PO ONE (21:45)
[2022-06-28] MEDS ORDERED: MORPHINE SULFATE 10 MG/ML CPJ IM ONE (21:45)
[2022-06-29] MEDS ORDERED: METH-653 MT (00:19)
[2022-06-29] MEDS ORDERED: HYDR-4001 MT (00:19)
[2022-06-29] MEDS ORDERED: ONDANSETRON 4MG ODT PO NR (01:15)
[2022-06-29] MEDS ORDERED: METHOCARBAMOL 500MG TABLET PO NR (01:15)
[2022-06-29] MEDS ORDERED: MORPHINE SULFATE 10 MG/ML CPJ IM NR (01:15)
== END 2022-06-29 01:28 | disposition home or self-care (01) ==
LOC: ER 14:54
DX: M54.40 Lumbago with sciatica, unspecified side (principal); J44.9 Chronic obstructive pulmonary disease, unspecified; I25.10 Atherosclerotic heart disease of native coronary artery without angina pectoris; E11.9 Type 2 diabetes mellitus without complications; E78.00 Pure hypercholesterolemia, unspecified; I10 Essential (primary) hypertension; I25.2 Old myocardial infarction; Z79.899 Other long term (current) drug therapy
CPT/HCPCS: 73502; 96372; 99283; J2270; Q0162

== ENCOUNTER 2022-07-08 09:14 | Emergency (ER) | payer MEDICARE ==
[~2022-07-08] VITALS: Ht 170.2 cm; Wt 74.0 kg
[~2022-07-08 09:14] MED LIST changes: +HYDR-4001 MT; +METH-653 MT
[2022-07-08 09:24] VITALS: BP 174/98
[2022-07-08] MEDS ORDERED: GLYCERIN ADULT SUPPOSITORY PR ONE (09:45)
[2022-07-08] MEDS ORDERED: SENN-257 MT (13:07)
[2022-07-08] MEDS ORDERED: DOCU-138 MT (13:07)
== END 2022-07-08 14:27 | disposition home or self-care (01) ==
LOC: ER 09:14
DX: K59.00 Constipation, unspecified (principal); E11.9 Type 2 diabetes mellitus without complications; I11.0 Hypertensive heart disease with heart failure; I50.9 Heart failure, unspecified; I25.10 Atherosclerotic heart disease of native coronary artery without angina pectoris; M54.30 Sciatica, unspecified side; E78.00 Pure hypercholesterolemia, unspecified; I25.2 Old myocardial infarction; F17.210 Nicotine dependence, cigarettes, uncomplicated; Z98.61 Coronary angioplasty status
CPT/HCPCS: 74018; 99283